=== PATIENT | female | born 1995 | race Caucasian/White ===

== ENCOUNTER 2021-11-23 06:30 | Inpatient (IN) ==
[2021-11-23] MEDS ORDERED: D5 1/2 NS 1,000 ML 1,000 ML IV ONE (07:04)
[2021-11-23] MEDS ORDERED: BETADINE SOLN ONE (07:04)
[2021-11-23] MEDS ORDERED: PITOCIN ONE (07:04)
[2021-11-23] MEDS ORDERED: D5 1/2 NS 1,000 mL + PITOCIN 20 UNITS/L IV 20 UNITS/1,000 ML BAG IV ONE (07:05)
[2021-11-23] MEDS ORDERED: D5 LR + PITOCIN 10 UNITS/L 10 UNITS/1,000 ML BAG IV ONE (07:05)
--- NOTE | 2021-11-23 07:28 | DR.OB ---
OB Quick Note - Assessment/Plan Assessment/Plan: L&D 11/23/21 at 7:20am S-No complaint. O-Afebrile,VSS FUX=660 with good LTV, +accel, no decel. CTX=mild uterine irritability CVX=3cm/75%/0/VTX AROM with clear fluid. IUPC and FSE placed. A-IUP at 38 6/7 weeks for induction PIH +GBS Bipolar d.o. anemia P-Begin pitocin induction IV ABX in labor for +GBS F/U preeclamptic labs Anticipate
[2021-11-23] MEDS ORDERED: PHENERGAN INJ 25 MG IM PRN ×2 (07:30→15:37)
[2021-11-23] MEDS ORDERED: PITOCIN IVP ONE (07:30)
[2021-11-23] MEDS ORDERED: NUBAIN INJ 200 MG VIAL MULTIDOSE IVP PRN (07:30)
[2021-11-23] MEDS ORDERED: AMPICILLIN VIAL 2 GRAM 2 G in NS 100 ML IV + SPIKE MINIBAG* 100 ML IV SCH (07:30)
[2021-11-23] MEDS ORDERED: D5 LR + PITOCIN 10 UNITS/L 10 UNITS/1,000 ML BAG IV PRN (07:30)
[2021-11-23] MEDS ORDERED: D5 1/2 NS 1,000 ML 1,000 ML IV SCH (07:30)
[2021-11-23] MEDS ORDERED: REGLAN INJ 10 MG VIAL IVP PRN (07:30)
[2021-11-23] MEDS ORDERED: MORPHINE SULFATE INJ 2 MG INJ IVP PRN (07:30)
[2021-11-23] MEDS ORDERED: NS 100 ML IV 100 ML ONE ×2 (07:34→11:47)
[2021-11-23] MEDS ORDERED: AMPICILLIN VIAL 2 GRAM ONE (07:34)
[2021-11-23] MEDS: AMPICILLIN VIAL 1 GRAM 1 G in NS 50 ML IV + SPIKE MINIBAG* 50 ML IV SCH ×2 (07:59→12:00)
[2021-11-23] MEDS ORDERED: AMPICILLIN VIAL 2 GRAM 2 G in NS 100 ML IV 100 ML IV SCH (08:00)
[2021-11-23 08:12] LABS: URIC ACID 4.9 mg/dL (2.6-6.0)
[2021-11-23] MEDS ORDERED: STADOL INJ ONE ×2 (09:00→11:29)
[2021-11-23] MEDS: STADOL INJ IVP PRN ×2 (09:00→11:30)
[2021-11-23] MEDS ORDERED: ILOTYCIN OPHTH OINT ONE (09:28)
[2021-11-23] MEDS ORDERED: AQUA-MEPHYTON NEONATAL IM ONE (09:28)
[2021-11-23] MEDS: REGLAN INJ 10 MG VIAL ONE ×2 (09:57→10:00)
[2021-11-23] MEDS ORDERED: AMPICILLIN VIAL 1 GRAM ONE (11:47)
[2021-11-23] MEDS ORDERED: XYLOCAINE 1 % (PLAIN) ONE (15:26)
[2021-11-23] MEDS: D5 1/2 NS 1,000 ML 1,000 ML with PITOCIN 20 UNITS IV SCH ×2 (16:00)
[2021-11-23] MEDS ORDERED: AMBIEN PO PRN (16:34)
[2021-11-23] MEDS ORDERED: ADACEL or BOOSTRIX TDaP VACCINE IM ONE (16:34)
[2021-11-23] MEDS ORDERED: DERMOPLAST PAIN RELIEF SPRAY TOP PRN (16:34)
[2021-11-23] MEDS ORDERED: MILK OF MAGNESIA PO PRN (16:34)
[2021-11-23] MEDS: MOTRIN TAB 800 MG PO PRN (17:44)
[2021-11-23] MEDS: VSL#3 PO SCH ×2 (17:52→17:53)
[2021-11-23] MEDS: FERROUS GLUCONATE PO SCH (18:31)
[2021-11-24] MEDS: D5 1/2 NS 1,000 ML 1,000 ML with PITOCIN 20 UNITS IV SCH ×2 (02:55)
[2021-11-24 04:56] LABS: HEMATOCRIT 27.7 % (36.0-47.0); HEMOGLOBIN 9.1 g/dL (12.0-16.0)
[2021-11-24] MEDS: FERROUS GLUCONATE PO SCH (06:21)
--- NOTE | 2021-11-24 06:26 | DR.OB ---
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 Head delivered over intact perineum. Nuchal cord x 1 reduced. Nose and mouth bulb suctioned. Body delivered over intact perineum. Cord clamped x 2 and cut. Infant handed to attendant. Cord sent for gases. Placenta delivered spontaneously / intact / 3 vessel cord. A small midline second degree tear noted and repaired with 0-vicryl in usual fashion. No CVX tears noted. Viable male infant, VTX/OA, wt=6'7" and 8/9, stable to NBN. Mother stable to RR. TNO=168in.
[2021-11-24] MEDS ORDERED: DEPO-PROVERA CONTRACEPTIVE INJ IM ONE (06:28)
[2021-11-24 07:27] VITALS: BMI 25.1
[2021-11-24] MEDS ORDERED: PRENATAL PLUS PO ONE (07:30)
[2021-11-24] MEDS ORDERED: ADACEL or BOOSTRIX TDaP VACCINE IM ONE (07:30)
[2021-11-24] MEDS ORDERED: PRENATAL PLUS PO SCH (09:00)
[2021-11-24] MEDS: VSL#3 PO SCH (09:09)
[2021-11-24] MEDS: MOTRIN TAB 800 MG PO PRN (10:34)
[2021-11-24 11:54] VITALS: BP 128/74
== END 2021-11-24 17:05 | disposition home or self-care (01) | DRG 806 ==
LOC: LD 06:57 → MED/SURG 16:51
PROVIDERS: ADMIT Specialist; ATTEND Specialist
DX: B95.1 Streptococcus, group B, as the cause of diseases classified elsewhere; O13.4 Gestational [pregnancy-induced] hypertension without significant proteinuria, complicating childbirth; Z37.0 Single live birth; R79.89 Other specified abnormal findings of blood chemistry; Z01.818 Encounter for other preprocedural examination; F90.9 Attention-deficit hyperactivity disorder, unspecified type; O98.813 Other maternal infectious and parasitic diseases complicating pregnancy, third trimester; D50.8 Other iron deficiency anemias; Z3A.38 38 weeks gestation of pregnancy; O99.02 Anemia complicating childbirth; F31.9 Bipolar disorder, unspecified; Z20.822 Contact with and (suspected) exposure to COVID-19; R82.998 Other abnormal findings in urine; O70.1 Second degree perineal laceration during delivery